=== PATIENT | male | born 1980 | race Caucasian/White ===

== ENCOUNTER 2020-08-10 01:32 | Emergency (ER) | payer MEDICAID, OTHER ==
[~2020-08-10] VITALS: Ht 175.3 cm; Wt 77.1 kg
[2020-08-10 01:37] VITALS: BP 137/77
== END 2020-08-10 02:35 | disposition home or self-care (01) ==
LOC: ER 01:34
DX: L02.811 Cutaneous abscess of head [any part, except face] (principal); L02.212 Cutaneous abscess of back [any part, except buttock and flank]
CPT/HCPCS: 10060